=== PATIENT | female | born 2005 | race African-American/Black ===

== ENCOUNTER 2025-05-02 16:30 | Inpatient (IN) | payer BC, OTHER ==
[~2025-05-02] VITALS: Ht 165.1 cm; Wt 129.3 kg
[2025-05-02 20:50] VITALS: BP 143/90; PULSE 87; RESP 20; TEMP 98.3; O2SAT 98
[2025-05-02] MEDS ORDERED: magnesium hydroxide 30ml (MOM) UD suspension PO PRN (21:10)
[2025-05-02] MEDS ORDERED: loperamide 2mg capsule PO PRN (21:10)
[2025-05-02] MEDS ORDERED: NICOTINE POLACRILEX 2 MG LOZENGE BC PRN (21:10)
[2025-05-02 21:55] VITALS: RESP 20; O2SAT 98
[2025-05-02] MEDS ORDERED: [UNRECOGNIZED DRUG - CODE] IV (21:58)
[2025-05-02] MEDS ORDERED: QUET25TA PO (21:58)
[2025-05-02] MEDS ORDERED: FAMO-129 PO (21:58)
[2025-05-03 07:00] VITALS: RESP 16
[2025-05-03 08:00] VITALS: PULSE 87; RESP 16; TEMP 98.5
[2025-05-03] MEDS ORDERED: nicotine 21mg patch - 24 hr TD SCH (08:00)
[2025-05-03 09:24] LABS: CHOL/HDL RATIO 2.4 (0.00-4.99); LDL CHOLESTEROL 84 MG/DL (50-100)
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
--- NOTE | 2025-05-03 18:31 | HISTORY AND PHYSICAL-Residence ---
History & Physical Providers to Resident Creating Document: KAROLYN WHALEN, RES ~ History of Present Illness Reason for Admit\Complaint: H consult History of Present Illness The patient is a 19-year-old female who was admitted into [place] [facility] on 5150 hold for grave disability, poor sleep, hallucinations and paranoia. In 2019, the patient was treated with high doses of steroids, plasmapheresis for Yoly's encephalopathy and subsequently developed catatonia. On questioning, the patient does not remember when or how she got here. She wants to see her mom and sister. She said she sees primary care in [place] and lives in [place]. She has no other complaints. Allergies: Coded Allergies: amoxicillin (Verified Allergy, Unknown, 05/02/25) haloperidol (Verified Allergy, Unknown, 05/02/25) Home Medications Home Medications Active Reported Methylprednisolone Sod Succ 125 Mg Vial 125 Mg IV DAILY Seroquel (Quetiapine Fumarate) 25 Mg Tablet 50 Mg PO CCHS Pepcid (Famotidine) 20 Mg Tablet 1 Tab PO BID Past Medical History Past Medical History History of Yoly's encephalopathy Anxiety PCOS Past Surgical History Surgical History Comment None Past Social History Social History Comment Patient lives in [place]. Sees primary care in [place]. No substance use history or IV drug abuse. ROS ROS Constitutional: No fever, dizziness, weakness. no change in appetite/weight HEENT: No blurring of the vision, No sore throat, epistaxis, tinnitus Cardiovascular: No chest pain/discomfort, palpitations, syncope. No pedal edema Respiratory: No sob, cough,, hemoptysis Gastrointestinal: No abdominal pain, nausea, vomiting. No diarrhea, constipation, melena. Genitourinary: No frquency, urgency, incontinence, nocturia. No dysuria, hematuria Musculoskeletal: No arthralgia, myalgia Endocrine: No fatigue, polydipsia, polyuria. No heat or cold intolerance Neurologic: No headache, vertigo. No weakness, numbness or tingling of extremi ties Psychiatric: Reports hallucinations/delusions Hematologic: No bleeding or bruises Exam Vitals: Vital Signs Date Time Temp Pulse Resp B/P (MAP) Pulse Ox O2 Delivery O2 Flow Rate FiO2 05/03/25 08:00 98.5 87 16 Room Air 05/02/25 21:55 98 05/02/25 20:50 143/90 (107) General: Adult, obese female, not in distress Head: Normocephalic with an atraumatic Eyes: Pupils- 3mm, reacting to light, conjunctiva- anicteric Nose and throat: No polyps, septum- normal, no mucosal ulcers Neck: Supple, no lymphadenopathy, no carotid bruit Respiratory: No use of accessory muscles of respiration, Bilateral normal vesiscular breath sounds heard. No wheeze, rhochi or creps Cardiac: S1-S2 heard, rythm regular, no gallop/murmur Abdomen: non distended, no tenderness, no organomegaly, bowel sounds - heard Extremities: no clubbing, no pedal edema, no deformities, peripheral pulses - 2+ Skin: warm and dry, no rash, no purpura Neuro: No focal deficit, gross cranial nerve exam - normal Additional Plan A 19-year-old female is admitted into the mental health unit on 5150 hold. Plan: 5150 hold Psychosis Generalized anxiety disorder Continue management as per Psychiatry. History of Yoly's thyroiditis Follow up with TSH. Patient not on any medications at home. Disposition: Hospitalist service we will continue to follow the patient during the course of her hospital stay. Karolyn Whalen MD Internal Medicine Resident, PGY-2 The patient was seen, examined and discussed with the attending physician, Dr. Rainey. Date of Service: May 03, 2025 Billing Provider: KENN RAINEY MD,KAROLYN LEIVA, RES May 03, 2025 18:31
[2025-05-03 19:00] VITALS: RESP 18; O2SAT 98
[2025-05-03 19:26] VITALS: BP 126/79; PULSE 111; RESP 18; TEMP 97.4; O2SAT 98
[2025-05-03 20:30] VITALS: PULSE 95
[2025-05-04 07:30] VITALS: BP 109/79; PULSE 67; RESP 14; TEMP 98; O2SAT 95
[2025-05-04 07:42] LABS: MEAN PLATELET VOLUME 6.3 FL (7.4-10.4); RED CELL DISTRIBUTION WIDTH 14.9 % (11.5-14.5)
[2025-05-04 08:08] LABS: CREATININE 0.74 MG/DL (0.40-0.90); TOTAL CARBON DIOXIDE 26.8 MMOL/L (24-32); eCRCL 108 ML/MIN; eGFR > 90 ML/MIN
[2025-05-04 19:00] VITALS: RESP 18; O2SAT 97
[2025-05-04 19:16] VITALS: BP 133/85; PULSE 122; RESP 18; TEMP 97.3; O2SAT 97
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
[2025-05-04] MEDS: OLANZAPINE 5 MG TABLET PO SCH (20:24)
[2025-05-04] MEDS: divalproex sod 250mg ER (24-hour) tablet PO SCH (20:25)
[2025-05-05 07:30] VITALS: BP 131/78; PULSE 100; RESP 16; TEMP 97.1; O2SAT 96
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
[2025-05-05 19:00] VITALS: RESP 16; O2SAT 98
--- NOTE | 2025-05-05 19:24 | PROGRESS NOTE- Residence ---
Progress Note - Resident Providers to CC Resident Creating Document: JOSÉ MIGUEL CEDILLO RES ~ Antibiotic Timeout Antibiotic Ordered?: No Subjective Patient was seen and examined at bedside. No active medical complaints. Objective Vital Signs Date Time Temp Pulse Resp B/P (MAP) Pulse Ox O2 Delivery O2 Flow Rate FiO2 05/05/25 07:30 97.1 100 16 131/78 (95) 96 Room Air Result Diagram: 05/04/2516 05/04/25 0716 General: Awake and Alert, no acute distress. HEENT: Conjunctiva pink, Sclera clear, Mucus Membranes moist. Neck: Supple without masses and tenderness. Resp: Unlabored. Lungs clear to auscultation bilaterally. Heart: Regular Rate and rhythm, normal S1 and S2 without murmur, rub or gallop. Abdomen: Soft and non tender no organomegaly Extremities: No cyanosis,clubbing or edema. Skin: Warm and Dry. Plan Plan Assessment A 19-year-old female admitted into the mental health unit on 5150 hold. 5150 hold Psychosis Generalized anxiety disorder Continue management as per Psychiatry. No active medical complaints Disposition: Hospitalist service we will continue to follow the patient during the course of her hospital stay. The patient was seen, examined and discussed with the attending physician, Dr. Junior. Date of Service: May 05, 2025 Billing Provider: KENN JUNIOR MD, LUCAS, RES May 05, 2025 19:24
[2025-05-05 20:00] VITALS: BP 123/83; PULSE 98; RESP 16; TEMP 98; O2SAT 98
[2025-05-06 07:30] VITALS: RESP 16; O2SAT 97
[2025-05-06 08:00] VITALS: BP 130/81; PULSE 104; RESP 16; TEMP 97.6; O2SAT 97
--- NOTE | 2025-05-06 18:48 | PROGRESS NOTE ---
Progress Note Dictate Providers to CC ~ Central Line/PICC still needed: N\\A Antibiotic Ordered?: No MRSA Education MRSA Education Provided to pt: No Objective Vitals Vital Signs Date Time Temp Pulse Resp B/P (MAP) Pulse Ox O2 Delivery O2 Flow Rate FiO2 05/06/25 17:12 16 05/06/25 08:00 97.6 104 130/81 (97) 97 Room Air Lab Results: 05/04/25 0716 05/04/25 0716 Psychiatrist's Progress Note Date of Service: May 06, 2025 Notes CHART REVIEW The pt was placed on a 5150 hold for GD after it was reported that the pt had not been sleeping, unable to make a plan of care and has been experiencing fear. 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 Pt began experiencing anxiety, poor sleep, confusion, panic, unable to safety plan. Per mom - pt experienced a similar episode in 2019, started experiencing confusion, not acting like herself, pt was diagnosed with possible amnesia, bipolar or schizophrenia. Pt's symptoms began returning around one month ago. Mom reports confusions, anxiety, poor sleep, difficulty grasphing reality, agitation, memory lapse, and a significant fear of dying. ASSESSMENT The patient was interviewed in observation room. The patient was actively standing in doorway. The patient endorses "not doing so well.' The patient endorses she had a stroke this morning. "It was way too loud and too much stuff going on." "My vision went completely blind." "It may have been a panic attack, it is creepy in here." "I am very anxious, hospital alarms trigger me." The patient endorses her dads birthday is tomoorow he 10 years ago when she was 8 years of age. Denies SI. Denies HI. Denies VH. The patient endorses adequate sleep and food intake. The patient is stable no acute distress noted. The patient presents as depressed and a bit anxious.. Per staff report no abnormal behaviors. Will continue daily assessment and adjusting treatment as needed. Closely monitor behavior and response to medication during hospitalization. Speech: Normal Eye Contact: Normal Motor Activity: Normal Affect: Labile Mood: Anxious Orientation Impairment: None Memory Impairment: None Attention: Normal Hallucinations: None Other: None Suicidality: None Homicidality: None Delusions: None Behavior: Agitated Insight: Fair Judgment: Fair Treatment DIAZIPEM 10MG PO QHS OLANZAPINE 15MG PO QHS FLUOXETINE 20MG PO DAILY DEPAKOTE ER 500MG PO DAILY 5250 HOLD-GD- Patient is unable to formulate a plan to safety. We are still titrating medications to an effective dose while maintaining a therapeutic environment to prevent decompensation and readmission. Monitoring by Staff, Milieu, Group, and Individual counseling as needed -- According to the [place] Suicide Assessment the above named patient is on Q15 MINUTE CHECKS. Total time spent 40 minutes on REVIEW OF Clinical notes [X ] RN notes [X] PCT documentation [X] SW notes Labs [ X] Medications [X] Care trends/care activity [X] Vitals [X] DISCUSSION WITH home care coordinator [X] Staff SW Treatment Team [X] Discharge UNSURE AT THIS TIME. DISCHARGE HOME ONCE STABLE CODING VISIT-PSYCHIATRY Date of Service: May 06, 2025 Billing Provider: LAVELLE FONTENOT APRN Psych Common Visit Codes: [id number] INP/OBS CARE (Mod) LAVELLE FONTENOT APRN May 06, 2025 18:48
[2025-05-06 19:00] VITALS: RESP 20; O2SAT 97
[2025-05-06 20:00] VITALS: BP 136/62; PULSE 102; RESP 20; TEMP 98; O2SAT 97
[2025-05-07 07:00] VITALS: RESP 18; O2SAT 99
[2025-05-07 08:00] VITALS: BP 139/86; PULSE 110; RESP 18; TEMP 97.4; O2SAT 99
[2025-05-07] MEDS: mag hydrox/Alum hydrox/simeth 30ml oral suspension PO PRN (14:20)
--- NOTE | 2025-05-07 17:14 | PROGRESS NOTE ---
Daily Progress Note Providers to CC No new complaint today resting comfortably in the bed ~ Central Line/PICC still needed: No Antibiotic Timeout Antibiotic Ordered?: No MRSA Education MRSA Education Provided to pt: No Subjective As above Objective Vital Signs Date Time Temp Pulse Resp B/P (MAP) Pulse Ox O2 Delivery O2 Flow Rate FiO2 05/07/25 08:00 97.4 110 18 139/86 (103) 99 Room Air Vital signs, stable ,afebrile. Tachycardic, Pulse Oximetry reflects adequate oxygenation. BMI is 45, weight 124 kg General: well developed, well nourished. Awake , alert, and oriented x4, resting comfortably in the bed, in no acute distress . Skin: Warm, dry, no pallor, no rash or petechiae. HEENT: Atraumatic, normocephalic, EOMI, anicteric sclera B; pink conjunctiva; PERRLA, normal oropharynx, moist oral and nasal mucosa. Tympanic membrane , nose , throat clear. Neck: Trachea midline. Supple, full range of motion, no JVD, bruit , hepatojugular reflex , lymphadenopathy or masses, or other lesions Cardiac: Regular rhythm, tachycardic, no murmurs, rubs, or gallops. Normal S1 and S2, no S3 noticed. PMI is normal. Respiratory: Equal breath sounds bilaterally, no tachypnea; lungs clear to auscultation bilaterally, no wheezing ,rub or rales, or crackles. Chest wall is symmetric and without deformity. No signs of trauma. Chest wall is nontender. No signs of respiratory distress. Resonance is normal upon percussion bilaterally. Gastrointestinal: Abdomen symmetric, non-distended, soft, non-tender, normal bowel sounds x4 quadrant, normoactive, no hepatosplenomegaly , no masses , no bruit, no flank pain bilaterally. No voluntary guarding, rebound, or rigidity. No tenderness to percussion. No pulsatile masses. Equal femoral pulses. No Hernandez's sign or McBurney point tenderness. Back; no CVA tenderness bilaterally, no deformities. Neck and back are without deformity as well. No tenderness noted on palpation of the spinous processes. Spinous processes are midline. Cervical, thoracic, and lumbar paraspinal muscles are not tender and are without spasm. : Deferred by patient Musculoskeletal: Extremities, normal range of motion, non-tender, muscle strength 5/5 x 4. Negative Homans signs bilaterally on lower extremity. Distal pulses full symmetrical, no clubbing, cyanosis , edema. Neurological: Speech is clear, alert, and oriented x 4. No motor or sensory deficit, deep tendon reflexes normal, cerebellar intact. Cranial nerves II-XII intact. Psych: Alert and or appropriate, normal affect. Vascular: Good distal pulses, which are equal x4; capillary refill less than 2 seconds. Lymphatic, no lymphadenopathy. Result Diagram: 05/04/25 0716 05/04/25 0716 Problem\Assessment\Plan Plan Assessment A 19-year-old female admitted into the mental health unit on 5150 hold. 5150 hold Psychosis Generalized anxiety disorder Continue management as per Psychiatry. Tachyarrhythmia, lab work pending Leukocytosis, lab work pending Hospitalist service we will continue to follow the patient during the course of her hospital stay. Sepsis Screening Reassessment Date: May 07, 2025 Date of Service: May 07, 2025 Billing Provider: KALPESH ELLIS MD Common Visit Codes: [id number] INP/OBS CARE(MOD) KALPESH ELLIS MD May 07, 2025 17:14
--- NOTE | 2025-05-07 17:36 | RADIOLOGY REPORT ---
CHEST RADIOGRAPH Indication: sepsis.. Technique: Single frontal view of the chest was obtained COMPARISON: None FINDINGS: Lines and Tubes: None Lungs: Clear Pleura: No effusion. No pneumothorax. Cardiomediastinal contours: Unremarkable Bones: Unremarkable IMPRESSION: No acute disease.
--- NOTE | 2025-05-07 18:45 | PROGRESS NOTE ---
Progress Note Dictate Providers to CC ~ Central Line/PICC still needed: N\\A Antibiotic Ordered?: No MRSA Education MRSA Education Provided to pt: No Objective Vitals Vital Signs Date Time Temp Pulse Resp B/P (MAP) Pulse Ox O2 Delivery O2 Flow Rate FiO2 05/07/25 08:00 97.4 110 18 139/86 (103) 99 Room Air Lab Results: 05/04/25 0716 05/04/25 0716 Psychiatrist's Progress Note Date of Service: May 07, 2025 Notes CHART REVIEW The pt was placed on a 5150 hold for GD after it was reported that the pt had not been sleeping, unable to make a plan of care and has been experiencing fear. 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 Pt began experiencing anxiety, poor sleep, confusion, panic, unable to safety plan. Per mom - pt experienced a similar episode in 2019, started experiencing confusion, not acting like herself, pt was diagnosed with possible amnesia, bipolar or schizophrenia. Pt's symptoms began returning around one month ago. Mom reports confusions, anxiety, poor sleep, difficulty grasphing reality, agitation, memory lapse, and a significant fear of dying. ASSESSMENT The patient was interviewed in observation room. The patient was actively standing in hallway. The patient endorses "I am doing better." "I am less anxious today but a littl sad because today is my fathers birthday and I wanted to release a balloon but everything happens for a reason." Denies SI. Denies HI. Denies VH. The patient endorses adequate sleep and food intake. The patient is stable no acute distress noted. The patient presents as less anxious.. Per staff report no abnormal behaviors. Will continue daily assessment and adjusting treatment as needed. Closely monitor behavior and response to medication during hospitalization. Speech: Normal Eye Contact: Normal Motor Activity: Normal Affect: Full Mood: Anxious Orientation Impairment: None Memory Impairment: None Attention: Normal Hallucinations: None Other: None Suicidality: None Homicidality: None Delusions: None Behavior: Cooperative Insight: Fair Judgment: Fair Treatment DIAZIPEM 10MG PO QHS OLANZAPINE 15MG PO QHS FLUOXETINE 20MG PO DAILY DEPAKOTE ER 500MG PO DAILY 5250 HOLD-GD- Patient is unable to formulate a plan to safety. We are still titrating medications to an effective dose while maintaining a therapeutic environment to prevent decompensation and readmission. Monitoring by Staff, Milieu, Group, and Individual counseling as needed -- According to the [place] Suicide Assessment the above named patient is on Q15 MINUTE CHECKS. Total time spent 30 minutes on REVIEW OF Clinical notes [X ] RN notes [X] PCT documentation [X] SW notes Labs [ X] Medications [X] Care trends/care activity [X] Vitals [X] DISCUSSION WITH beam house inspector [X] Staff SW Treatment Team [X] Discharge UNSURE AT THIS TIME. DISCHARGE HOME ONCE STABLE CODING VISIT-PSYCHIATRY Date of Service: May 07, 2025 Billing Provider: LAVELLE FONTENOT APRN Psych Common Visit Codes: [id number] INP/OBS CARE (Mod) LAVELLE FONTENOT APRN May 07, 2025 18:45
[2025-05-07 18:57] LABS: MEAN PLATELET VOLUME 6.4 FL (7.4-10.4); RED CELL DISTRIBUTION WIDTH 14.7 % (11.5-14.5)
[2025-05-07 19:13] LABS: CREATININE 0.89 MG/DL (0.40-0.90); TOTAL CARBON DIOXIDE 29.7 MMOL/L (24-32); eCRCL 90 ML/MIN; eGFR > 90 ML/MIN
[2025-05-08 07:00] VITALS: RESP 17; O2SAT 99
[2025-05-08 08:00] VITALS: BP 152/92; PULSE 120; RESP 17; TEMP 97.7; O2SAT 99
--- NOTE | 2025-05-08 16:08 | PROGRESS NOTE ---
Progress Note Dictate Providers to CC ~ Progress Note: Admission date: 05/02/25 Status: 5250 HPI: Admitted on 5150 for grave disability, poor sleep, fearful, paranoid- that something bad was going to happen, tangental, memory lapses, ability and auditory, visual, hallucinations, confusion unable to perform ADLs, not eating. Worried someone was going to hurt her. 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 04/27- [facility] Neurologist Dr. 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 Raised concern for potential paranoid schizophrenia vs. schizoaffective disorder bipolar type. Recommended patient would benefit to transfer to an inpatient psychiatric facility. Psychiatric History Age of initial treatment: 13 Outpatient: hx of brief counseling in the past Inpatient: denies Historical Diagnoses (w/year): VIV, psychosis NOS Access to firearms: denies Hx of suicide attempts: denies Hx of self-harm: denies Hx of violence: denies Legal hx: denies Historical Psych Medications: quetiapine, olanzapine Substance Use History: denies No known hx of IVDU No known hx of meeting criteria for a substance use disorder Social history Born and raised: [facility] Current Environment Living Situation: In [place] with roommate, working on degree in animal science for the past 3 1/2 years, has one semester left . 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 Mood labile Anniversary of her Father's on May 06 SAT- endorses ongoing panic, less anxiety and distress Thursday. Security was call on her last night- for episodes of agitation- delusions that people think she works here. 05/08 AM: cursing, screaming paranoid, fearful people are using her blood in a ritual. Coping skills- prayer - Psychiatric Medications: Valium Depakote Olanzapine Recent PRNS: Olanzapine Thorazine Valium Benadryl Hydroxyzine Side Effects: Denies No evidence of TD, EPS AIMs: 0 Review of Psychiatric Symptoms: Mood: "antsy but doing good" 03/31- good "I'm doing very very well" Suicide/self-harm: denies Sleep: States that high noise impacts sleep- 2 hours 05/07, 3 hours 05/06, 6 hours 05/04 Appetite: hungry Energy: "tired but I'm ok" Anxiety: 03/31- panic episodes Irritability: (expressed) Homicidal/Anger: intermittently- Hallucinations/Paranoia: denies Trauma symptoms: states she has always had a live time trusting people. States she has had a lot of trauma from "my whole life". Symptoms related to substance withdrawal: Mental Status Evaluation General Appearance: Hospital scrubs, poorly groomed, malodorous Eye contact: intermittent Demeanor: suspicious, anxious Orientation: to person, place, time, situation Speech: Appropriate rate/rhythm, loud Psychomotor Activity: within normal range Abnormal Body Movements: none observed Mood: anxious, fearful, upset Affect: Full range Suicidality: denies suicidal ideation Homicidally: denies Thought content: paranoid, delusional Thought process: goal directed Thought perceptions: no perceptual disorder noted Memory: appears intact Attention: appear attentive Insight: good Judgment: good - - Current Medical Problems: PCOS dx 4 years ago 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 Medical History Cardiac HX: Denies TBI Hx: denies Seizure Hx: denies WHITLEY Hx: denies - - Diagnoses Psychosis NOS r/o primary psychotic disorder- schizoaffective disorder bipolar type r/o Psychotic symptoms due to acute encephalopathy VIV w/panic PTSD- - Assessment Victorina presents for follow up to address Psychosis NOS, VIV with panic. 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 Upset, fearful, paranoid, insomnia, disorganized behavior. 05/08: minimal engagement in assessment, poor sleep, labile mood, threatened peers, ongoing manic and psychotic symptoms. Treatment plan: Discontinue valium QHS for anxiety, sleep. Start lorazepam TID for anxiety. Titrate Depakote ER for Mood stability/manic symptoms. Titrate olanzapine po QHS for mood, psychotic symptoms. Safety risk: low risk of imminent self-harm, low risk of externalized violent behaviors Plan Increase Depakote ER from 500 to 1000 mg po QD Increase olanzapine from 15 to 20 mg po QHS Discontinue Diazepam 10 mg po QHS for anxiety Start lorazepam 1 mg po TID Continue Q15 min checks Continue Groups/Milieu Engagement Promote social support- Rachel Lopez (lives in [place])- [phone] Care coordination: Sister Twyla- [phone] Mother Nancy- [phone] Tamica ROE- [phone] Dr. Tirso Guevara- [phone] Discharge Plan: To home No Access to firearms: Spent approximately 45 minutes reviewing records and test results, assessing and treatment planning, completing care coordination and documenting the encounter. Discussed risks, including possible adverse effects, and benefits of treatment recommendations including no treatment. Voice recognition software may have been used to dictate this note. There may be errors due to use of such software. Reporting of serious errors is appreciated. Safety plan established, reviewed, copy sent home (copy in the chart) Antibiotic Ordered?: No Objective Vitals Vital Signs Date Time Temp Pulse Resp B/P (MAP) Pulse Ox O2 Delivery O2 Flow Rate FiO2 05/08/25 13:44 18 05/08/25 08:00 97.7 120 152/92 (112) 99 Room Air Lab Results: 05/07/25 1834 05/07/25 1834 Coagulation Studies Laboratory Tests Test 05/07/25 18:34 D-Dimer 1.53 MG/L FEU (0-0.50) H D-Dimer Comment Problem\\Assessment\\Plan Problems/Diagnosis: (1) Unspecified psychosis (2) VIV (generalized anxiety disorder) CODING VISIT-PSYCHIATRY Date of Service: May 08, 2025 Billing Provider: SAKINA CASANOVA DNP Psych Common Visit Codes: [id number] INP/OBS CARE(Mod), [id number] INP/OBS CARE(High) SAKINA CASANOVA DNP May 08, 2025 16:08
[2025-05-08 19:00] VITALS: RESP 18; O2SAT 98
[2025-05-08 20:00] VITALS: BP 154/88; PULSE 116; RESP 18; TEMP 97.6; O2SAT 98
[2025-05-08] MEDS: divalproex sod 250mg ER (24-hour) tablet PO SCH (20:17)
[2025-05-09 07:00] VITALS: RESP 18; O2SAT 97
[2025-05-09 08:00] VITALS: BP 145/85; PULSE 122; RESP 18; TEMP 97.9; O2SAT 97
--- NOTE | 2025-05-09 10:49 | PROGRESS NOTE ---
Daily Progress Note Providers to CC No new complaint today, resting comfortably in the bed ~ Central Line/PICC still needed: No Huang-Non Protocol Huang Indications Met/Not Met: F/C Indications Not Met Antibiotic Timeout Antibiotic Ordered?: No Subjective As above Objective Vital Signs Date Time Temp Pulse Resp B/P (MAP) Pulse Ox O2 Delivery O2 Flow Rate FiO2 05/09/25 08:00 97.9 122 18 145/85 (105) 97 Vital signs, stable ,afebrile. Tachycardic, Pulse Oximetry reflects adequate oxygenation. General: well developed, well nourished. Awake , alert, and oriented x4, resting comfortably in the bed, in no acute distress . Skin: Warm, dry, no pallor, no rash or petechiae. HEENT: Atraumatic, normocephalic, EOMI, anicteric sclera B; pink conjunctiva; PERRLA, normal oropharynx, moist oral and nasal mucosa. Tympanic membrane , nose , throat clear. Neck: Trachea midline. Supple, full range of motion, no JVD, bruit , hepatojugular reflex , lymphadenopathy or masses, or other lesions Cardiac: Regular rhythm, regular rate no murmurs, rubs, or gallops. Normal S1 and S2, no S3 noticed. PMI is normal. Respiratory: Equal breath sounds bilaterally, no tachypnea; lungs clear to auscultation bilaterally, no wheezing ,rub or rales, or crackles. Chest wall is symmetric and without deformity. No signs of trauma. Chest wall is nontender. No signs of respiratory distress. Resonance is normal upon percussion bilaterally. Gastrointestinal: Abdomen symmetric, non-distended, soft, non-tender, normal bowel sounds x4 quadrant, normoactive, no hepatosplenomegaly , no masses , no bruit, no flank pain bilaterally. No voluntary guarding, rebound, or rigidity. No tenderness to percussion. No pulsatile masses. Equal femoral pulses. No Hernandez's sign or McBurney point tenderness. Back; no CVA tenderness bilaterally, no deformities. Neck and back are without deformity as well. No tenderness noted on palpation of the spinous processes. Spinous processes are midline. Cervical, thoracic, and lumbar paraspinal muscles are not tender and are without spasm. Musculoskeletal: Extremities, normal range of motion, non-tender, muscle strength 5/5 x 4. Negative Homans signs bilaterally on lower extremity. Distal pulses full symmetrical, no clubbing, cyanosis , edema. Neurological: Speech is clear, alert, and oriented x 4. No motor or sensory deficit, deep tendon reflexes normal, cerebellar intact. Cranial nerves II-XII intact. Psych: Alert and or appropriate, normal affect. Vascular: Good distal pulses, which are equal x4; capillary refill less than 2 seconds. Lymphatic, no lymphadenopathy. 05/08/25 20:00 Room Air Result Diagram: 05/07/25 1834 05/07/25 1834 Coagulation Studies Laboratory Tests Test 05/07/25 18:34 D-Dimer 1.53 MG/L FEU (0-0.50) H D-Dimer Comment Problem\Assessment\Plan Plan Assessment A 19-year-old female admitted into the mental health unit on 5150 hold. 5150 hold Psychosis Generalized anxiety disorder Continue management as per Psychiatry. Tachyarrhythmia, lab work pending, V/Q test pending Leukocytosis, lab work pending Electrocardiography pending Hospitalist service we will continue to follow the patient during the course of her hospital stay. Sepsis Screening Reassessment Date: May 09, 2025 Date of Service: May 09, 2025 Billing Provider: KALPESH ELLIS MD Common Visit Codes: [id number] INP/OBS CARE(MOD) KALPESH ELLIS MD May 09, 2025 10:49
--- NOTE | 2025-05-09 17:35 | PROGRESS NOTE ---
Progress Note Dictate Providers to CC ~ Progress Note: Admission date: 05/02/25 Status: 5250 HPI: Admitted on 5150 for grave disability, poor sleep, fearful, paranoid- that something bad was going to happen, tangental, memory lapses, ability and auditory, visual, hallucinations, confusion unable to perform ADLs, not eating. Worried someone was going to hurt her. 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 04/27- [facility] Neurologist Dr. 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 Raised concern for potential paranoid schizophrenia vs. schizoaffective disorder bipolar type. Recommended patient would benefit to transfer to an inpatient psychiatric facility. 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 States she feels like she is in a better place, less irritability. Is focused on discharge as soon as possible. States she has found benefit from the medication Psychiatric Medications: Lorazepam Depakote Olanzapine Side Effects: Denies No evidence of TD, EPS AIMs: 0 Review of Psychiatric Symptoms: Mood: "I'm doing better" describes her mood as "calm" Suicide/self-harm: denies Sleep: 7 hours on 05/08, States that high noise impacts sleep- 2 hours 05/07, 3 hours 05/06, 6 hours 05/04 Appetite: hungry- frustrated about dietary issues Energy: adequate Anxiety: "none" Irritability: (expressed) Homicidal/Anger: intermittently- Hallucinations/Paranoia: states yesterday she was hearing AH. Trauma symptoms: states she has always had a live time trusting people. States she has had a lot of trauma from "my whole life". Symptoms related to substance withdrawal: denies Mental Status Evaluation General Appearance: Hospital scrubs, poorly groomed, malodorous Eye contact: intermittent Demeanor: suspicious, anxious Orientation: to person, place, time, situation Speech: Appropriate rate/rhythm, loud Psychomotor Activity: within normal range Abnormal Body Movements: none observed Mood: anxious, fearful, upset Affect: Full range Suicidality: denies suicidal ideation Homicidally: denies Thought content: paranoid, delusional Thought process: goal directed Thought perceptions: no perceptual disorder noted Memory: appears intact Attention: appear attentive Insight: good Judgment: good - - Current Medical Problems: PCOS dx 4 years ago - states she just ended her control the week of psychiatric symptom onset. 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 Medical History Cardiac HX: Denies TBI Hx: denies Seizure Hx: denies WHITLEY Hx: denies - - Diagnoses Psychosis NOS r/o primary psychotic disorder- schizoaffective disorder bipolar type r/o Psychotic symptoms due to acute encephalopathy VIV w/panic PTSD- - Assessment Victorina presents for follow up to address Psychosis NOS, VIV with panic. 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 Upset, fearful, paranoid, insomnia, disorganized behavior. 05/09: remains acutely psychotic, mood less labile, less suspicious and more engaged today, still lacking insight into the severity of her psychotic symptoms. Treatment plan: Continue lorazepam TID for anxiety. Titrate Depakote ER for Mood stability/manic symptoms. Titrate olanzapine po QHS for mood, psychotic symptoms. Care coordination with mother, provided education and updates. Safety risk: low risk of imminent self-harm, low risk of externalized violent behaviors Plan Continue Depakote ER 1000 mg po QD Continue olanzapine 20 mg po QHS Continue lorazepam 1 mg po TID Continue Q15 min checks Continue Groups/Milieu Engagement Promote social support- Rachel Lopez (lives in [place])- [phone] Care coordination: Sister Twyla- [phone] Mother Nancy- [phone] Tamica JYOTHI- [phone] Dr. Tirso Guevara- [phone] Discharge Plan: To home Access to firearms: Spent approximately 45 minutes reviewing records and test results, assessing and treatment planning, completing care coordination and documenting the encounter. Discussed risks, including possible adverse effects, and benefits of treatment recommendations including no treatment. Voice recognition software may have been used to dictate this note. There may be errors due to use of such software. Reporting of serious errors is appreciated. Safety plan established, reviewed, copy sent home (copy in the chart) Antibiotic Ordered?: No Objective Vitals Vital Signs Date Time Temp Pulse Resp B/P (MAP) Pulse Ox O2 Delivery O2 Flow Rate FiO2 05/09/25 13:13 18 05/09/25 08:00 97.9 122 145/85 (105) 97 05/09/25 07:00 Room Air Lab Results: 05/07/25 1834 05/07/25 1834 Coagulation Studies Laboratory Tests Test 05/07/25 18:34 D-Dimer 1.53 MG/L FEU (0-0.50) H D-Dimer Comment Problem\\Assessment\\Plan Problems/Diagnosis: (1) Unspecified psychosis (2) VIV (generalized anxiety disorder) CODING VISIT-PSYCHIATRY Date of Service: May 09, 2025 Billing Provider: SAKINA CASANOVA DNP Psych Common Visit Codes: [id number] INP/OBS CARE(High) SAKINA CASANOVA DNP May 09, 2025 17:35
[2025-05-09 19:00] VITALS: RESP 16; O2SAT 97
[2025-05-09 20:00] VITALS: BP 125/80; PULSE 112; RESP 16; TEMP 97.1; O2SAT 97
[2025-05-10 07:00] VITALS: RESP 16
[2025-05-10 08:00] VITALS: RESP 16
--- NOTE | 2025-05-10 13:32 | ELECTROCARDIOGRAPH REPORT ---
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 JOHNNIE Song Measurements Intervals [place] Rate: 124 P: 62 CO: 137 QRS: 52 QRSD: 82 T: 12 QT: 307 QTc: 441 Interpretive Statements Sinus tachycardia Electronically Signed On 05-10-2025 17:16:[address] JOHNNIE Song Please click the below link to view image of tracing.
--- NOTE | 2025-05-10 14:26 | RADIOLOGY REPORT ---
NUCLEAR MEDICINE VENTILATION/PERFUSION LUNG SCAN. INDICATION: PE Elevated heart rate, elevated D-dimer, morbid obesity TECHNIQUE: Following intravenous demonstration of 6 millicuries of technetium 99m MAA, and inhalation of 40 mCi of Tc 99m DTPA scintigrams were obtained in multiple projections of the lungs. FINDINGS: There is normal uptake of radionuclide on both the ventilation and perfusion portions of the examination. No mismatched perfusion defects are demonstrated. Uptake is normally homogeneous. IMPRESSION: Low probability for PE.
--- NOTE | 2025-05-10 14:50 | PROGRESS NOTE ---
Progress Note Dictate Providers to CC ~ Progress Note: Admission date: 05/02/25 Status: 5250 HPI: Admitted on 5150 for grave disability, poor sleep, fearful, paranoid- that something bad was going to happen, tangental, memory lapses, ability and auditory, visual, hallucinations, confusion unable to perform ADLs, not eating. Worried someone was going to hurt her. 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 04/27- [facility] Neurologist Dr. 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 Raised concern for potential paranoid schizophrenia vs. schizoaffective disorder bipolar type. Recommended patient would benefit to transfer to an inpatient psychiatric facility. Psychiatric History Age of initial treatment: 13 Outpatient: hx of brief counseling in the past Historical Diagnoses (w/year): VIV, psychosis NOS Historical Psych Medications: quetiapine, olanzapine Substance Use History: denies No known hx of IVDU No known hx of meeting criteria for a substance use disorder Social history Born and raised: [facility] Current Environment Living Situation: In [place] with roommate, working on degree in animal science for the past 3 1/2 years, has one semester left . 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 [employer] Today on Assessment: Last night- woke up wide awake at [address], still delusional, still exhibiting agitation r/t things she perceives she hears (AH) Bizarre behavior includes wearing a mask r/t the need to protect herself from the germs- (paranoia) States she is feels she is ready to leave, states she would like to discharge to her grandmother's home States she would like to work on the unit one day Denies that she has super wu like reading other peoples minds (doesnt recall she made these statements earlier in her hospitalization) States she feels more like her self- knows her name, location, date Psychiatric Medications: Lorazepam Depakote Olanzapine Side Effects: denies No evidence of TD, EPS AIMs: 0 Review of Psychiatric Symptoms: Mood: "I feel mentally and physically a lot better" Suicide/self-harm: denies Sleep: 3.5 hours on 05/09- states that unit noise keeps her up at night, leads to trouble staying asleep, Appetite: "good" has had some frustration r/t dietary not bringing her the correct food. Energy: "good" Anxiety: "good" while taking the medication - states the Ativan has helped her better manage her anxiety Irritability: (expressed) Homicidal/Anger: intermit Hallucinations/Paranoia: denies AVH today Trauma symptoms: states she has always had a live time trusting people. Symptoms related to substance withdrawal: denies Mental Status Evaluation General Appearance: Hospital scrubs, poorly groomed, malodorous Eye contact: intermittent Demeanor: suspicious, anxious Orientation: to person, place, time, situation Speech: Appropriate rate/rhythm, loud Psychomotor Activity: within normal range Abnormal Body Movements: none observed Mood: anxious, fearful, upset Affect: Full range Suicidality: denies suicidal ideation Homicidally: denies Thought content: paranoid, delusional Thought process: goal directed Thought perceptions: no perceptual disorder noted Memory: appears intact Attention: appear attentive Insight: good Judgment: good - - Current Medical Problems: PCOS dx 4 years ago - states she just ended her control the week of psychiatric symptom onset. 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 Medical History Cardiac HX: Denies TBI Hx: denies Seizure Hx: denies WHITLEY Hx: denies - - Diagnoses Psychosis NOS r/o primary psychotic disorder- schizoaffective disorder bipolar type r/o Psychotic symptoms due to acute encephalopathy VIV w/panic PTSD- - Assessment Victorina presents for follow up to address Psychosis NOS, VIV with panic. 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 Upset, fearful, paranoid, insomnia, disorganized behavior. 05/10: remains paranoid, no longer overly psychotic/agitated as easily, mood less labile, more engaged today, still lacking insight into the severity of her psychotic symptoms, minimizing brenda Treatment plan: Continue lorazepam TID for anxiety. Titrate Depakote ER for Mood stability/manic symptoms. Titrate olanzapine po QHS for mood, psychotic symptoms. Care coordination with mother, provided education and updates. Safety risk: low risk of imminent self-harm, low risk of externalized violent behaviors Plan Continue Depakote ER 1000 mg po QD Continue olanzapine 20 mg po QHS Continue lorazepam 1 mg po TID Continue Q15 min checks Continue Groups/Milieu Engagement Promote social support- Rachel Lopez (lives in [place])- [phone] Care coordination: Sister Twyla- [phone] Mother Nancy- [phone] Tamica ROE- [phone] Dr. Tirso Guevara- [phone] Discharge Plan: To home Access to firearms: Spent approximately 45 minutes reviewing records and test results, assessing and treatment planning, completing care coordination and documenting the encounter. Discussed risks, including possible adverse effects, and benefits of treatment recommendations including no treatment. Voice recognition software may have been used to dictate this note. There may be errors due to use of such software. Reporting of serious errors is appreciated. Safety plan established, reviewed, copy sent home (copy in the chart) Antibiotic Ordered?: No Objective Vitals Vital Signs Date Time Temp Pulse Resp B/P (MAP) Pulse Ox O2 Delivery O2 Flow Rate FiO2 05/10/25 13:00 16 05/10/25 07:00 Room Air 05/09/25 20:00 97.1 112 125/80 (95) 97 Lab Results: 05/07/25 1834 05/07/25 1834 Coagulation Studies Laboratory Tests Test 05/07/25 18:34 D-Dimer 1.53 MG/L FEU (0-0.50) H D-Dimer Comment Problem\\Assessment\\Plan Problems/Diagnosis: (1) Unspecified psychosis (2) VIV (generalized anxiety disorder) CODING VISIT-PSYCHIATRY Date of Service: May 10, 2025 Billing Provider: SAKINA CASANOVA DNP Psych Common Visit Codes: [id number] INP/OBS CARE(Mod) SAKINA CASANOVA DNP May 10, 2025 14:50
[2025-05-10 19:00] VITALS: RESP 20; O2SAT 97
[2025-05-10 20:00] VITALS: BP 147/82; PULSE 100; RESP 20; TEMP 97.5; O2SAT 97
[2025-05-11 07:00] VITALS: RESP 16; O2SAT 97
[2025-05-11 08:00] VITALS: BP 95/74; PULSE 120; RESP 16; TEMP 97.8; O2SAT 97
--- NOTE | 2025-05-11 17:59 | PROGRESS NOTE ---
Progress Note Dictate Providers to CC ~ Progress Note: Admission date: 05/02/25 Status: 5250 HPI: Admitted on 5150 for grave disability, poor sleep, fearful, paranoid- that something bad was going to happen, tangental, memory lapses, ability and auditory, visual, hallucinations, confusion unable to perform ADLs, not eating. Worried someone was going to hurt her. 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 04/27- [facility] Neurologist Dr. 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 Raised concern for potential paranoid schizophrenia vs. schizoaffective disorder bipolar type. Recommended patient would benefit to transfer to an inpatient psychiatric facility. Psychiatric History Age of initial treatment: 13 Outpatient: hx of brief counseling in the past Historical Diagnoses (w/year): VIV, psychosis NOS Historical Psych Medications: quetiapine, olanzapine Substance Use History: denies No known hx of IVDU No known hx of meeting criteria for a substance use disorder Social history Born and raised: [facility] Current Environment Living Situation: In [place] with roommate, working on degree in animal science for the past 3 1/2 years, has one semester left . 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 Currently works at [employer]. States she is able to do all of her ADLs independently States she feels like a lot of the patient's think she works here (maintained delusion) States she feels like people are jealous of the things she has - nervous about people about touching her stuff. Per nursing staff increase in "somatic complaints"- requiring more reassurance from nursing staff Grandmother can't take her home- family doesnt feel like she is ready to be discharged. Has told nursing staff there is a "speaker" in her room Psychiatric Medications: Lorazepam Depakote Olanzapine Side Effects: denies No evidence of TD, EPS AIMs: 0 Review of Psychiatric Symptoms: Mood: I feel really happy today- Suicide/self-harm: denies Sleep: 6 hours on 05/10 (vs. 3.5 on 05/09)- states that unit noise keeps her up at night, leads to trouble staying asleep, Appetite: "good" has had some frustration r/t dietary not bringing her the correct food. Energy: "good" Anxiety: "good" while taking the medication - states the Ativan has helped her better manage her anxiety Irritability: (expressed) Homicidal/Anger: none expressed today Hallucinations/Paranoia: denies AVH today, mild delusions Trauma symptoms: states she has always had a live time trusting people. Symptoms related to substance withdrawal: denies Mental Status Evaluation General Appearance: Hospital scrubs, well groomed Eye contact: intermittent Demeanor: suspicious, anxious Orientation: to person, place, time, situation Speech: Appropriate rate/rhythm, loud Psychomotor Activity: within normal range Abnormal Body Movements: none observed Mood: anxious, Affect: Full range Suicidality: denies suicidal ideation Homicidally: denies Thought content: paranoid, delusional Thought process: goal directed Thought perceptions: no perceptual disorder noted Memory: appears intact Attention: appear attentive Insight: good Judgment: good Current Medical Problems: PCOS dx 4 years ago - states she just ended her control the week of psychiatric symptom onset. 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 Medical History Cardiac HX: Denies TBI Hx: denies Seizure Hx: denies WHITLEY Hx: denies - - Diagnoses Psychosis NOS r/o schizoaffective disorder bipolar type r/o Psychotic symptoms due to acute encephalopathy VIV w/panic PTSD- - Assessment Victorina presents for follow up to address Psychosis NOS, VIV with panic. 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 Upset, fearful, paranoid, insomnia, disorganized behavior. 05/11: She continues to present with psychotic symptoms, are less overt today, sleep is continuing to stabilize. Treatment plan: Continue lorazepam TID for anxiety. Titrate Depakote ER for Mood stability/manic symptoms. Titrate olanzapine po QHS for mood, psychotic symptoms. Care coordination with mother, provided education and updates. Safety risk: low risk of imminent self-harm, low risk of externalized violent behaviors Plan Continue Depakote ER 1000 mg po QD Continue olanzapine 20 mg po QHS Continue lorazepam 1 mg po TID Continue Q15 min checks Continue Groups/Milieu Engagement Promote social support- Rachel Lopez (lives in [place])- [phone] Care coordination: Sister Twyla- [phone] Mother Nancy- [phone] Tamica ROE- [phone] Dr. Tirso Guevara- [phone] Discharge Plan: to home or family with further intensive outpatient psychiatric treatment Spent approximately 45 minutes reviewing records and test results, assessing and treatment planning, completing care coordination and documenting the encounter. Discussed risks, including possible adverse effects, and benefits of treatment recommendations including no treatment. Voice recognition software may have been used to dictate this note. There may be errors due to use of such software. Reporting of serious errors is appreciated. Antibiotic Ordered?: No Objective Vitals Vital Signs Date Time Temp Pulse Resp B/P (MAP) Pulse Ox O2 Delivery O2 Flow Rate FiO2 05/11/25 12:57 16 05/11/25 08:00 97.8 120 95/74 (81) 97 Room Air Lab Results: 05/07/25 1834 05/07/25 1834 Coagulation Studies Laboratory Tests Test 05/07/25 18:34 D-Dimer 1.53 MG/L FEU (0-0.50) H D-Dimer Comment Problem\\Assessment\\Plan Problems/Diagnosis: (1) Unspecified psychosis (2) VIV (generalized anxiety disorder) CODING VISIT-PSYCHIATRY Date of Service: May 11, 2025 Billing Provider: SAKINA CASANOVA DNP Psych Common Visit Codes: [id number] INP/OBS CARE(High) SAKINA CASANOVA DNP May 11, 2025 17:59
[2025-05-11 18:53] VITALS: RESP 17; O2SAT 98
--- NOTE | 2025-05-11 19:21 | PROGRESS NOTE- Residence ---
Progress Note - Resident Providers to CC Resident Creating Document: KAROLYN WHALEN, RES ~ Antibiotic Timeout Antibiotic Ordered?: No Subjective Patient was seen and examined at bedside. She wanted ultrasound of her thyroid. Her TSH was within normal range and she does not take any medications at home. Objective Vital Signs Date Time Temp Pulse Resp B/P (MAP) Pulse Ox O2 Delivery O2 Flow Rate FiO2 05/11/25 18:53 17 98 Room Air 05/11/25 08:00 97.8 120 95/74 (81) Result Diagram: 05/07/254 05/07/251833 Adult, obese female, not in distress Head: Normocephalic with an atraumatic Eyes: Pupils- 3mm, reacting to light, conjunctiva- anicteric Nose and throat: No polyps, septum- normal, no mucosal ulcers Neck: Supple, no lymphadenopathy, no carotid bruit Respiratory: No use of accessory muscles of respiration, Bilateral normal vesicular breath sounds heard. No wheeze, rhochi or creps Cardiac: S1-S2 heard, rythm regular, no gallop/murmur Abdomen: non distended, no tenderness, no organomegaly, bowel sounds - heard Extremities: no clubbing, no pedal edema, no deformities, peripheral pulses - 2+ Skin: warm and dry, no rash, no purpura Neuro: No focal deficit, gross cranial nerve exam - normal Coagulation Studies Laboratory Tests Test 05/07/25 18:34 D-Dimer 1.53 MG/L FEU (0-0.50) H D-Dimer Comment Assessment Assessment 5150 hold Psychosis Generalized anxiety disorder Continue management as per Psychiatry. History of Yoly's thyroiditis Follow up with TSH. Patient not on any medications at home. Disposition: Hospitalist service we will continue to follow the patient during the course of her hospital stay. Karolyn Whalen MD Internal Medicine Resident, PGY-2 The patient was seen, examined and discussed with the attending physician, Dr. Mcgrath. Plan Plan Assessment A 19-year-old female admitted into the mental health unit on 5150 hold. 5150 hold Psychosis Generalized anxiety disorder Continue management as per Psychiatry. No active medical complaints Disposition: Hospitalist service we will continue to follow the patient during the course of her hospital stay. The patient was seen, examined and discussed with the attending physician, Dr. Rainey. Date of Service: May 11, 2025 Billing Provider: PADMA MCGRATH MD Common Visit Codes: [id number] INP/OBS CARE(LOW) TAMAR WHALENMYMarkel LEIVA, RES May 11, 2025 19:21 PADMA MCGRATH MD May 14, 2025 16:40
[2025-05-11 20:00] VITALS: BP 146/100; PULSE 109; RESP 18; TEMP 97.6; O2SAT 99
[2025-05-12 07:00] VITALS: RESP 16; O2SAT 98
[2025-05-12 08:00] VITALS: BP 149/89; PULSE 118; RESP 16; TEMP 97.4; O2SAT 98
--- NOTE | 2025-05-12 13:06 | PROGRESS NOTE ---
Progress Note Dictate Providers to CC ~ Progress Note: Admission date: 05/02/25 Status: 5250 HPI: Admitted on 5150 for grave disability, poor sleep, fearful, paranoid- that something bad was going to happen, tangental, memory lapses, ability and auditory, visual, hallucinations, confusion unable to perform ADLs, not eating. Worried someone was going to hurt her. 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 04/27- [facility] Neurologist Dr. 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 Raised concern for potential paranoid schizophrenia vs. schizoaffective disorder bipolar type. Recommended patient would benefit to transfer to an inpatient ps hiatric facility. 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 Psychiatric Medications: Lorazepam Depakote Olanzapine Side Effects: denies No evidence of TD, EPS AIMs: 0 Review of Psychiatric Symptoms: Mood: I feel really happy today- Suicide/self-harm: denies Sleep: 5 hours 05/11, 6 hours on 05/10, 3.5 on 05/09-- states that unit noise keeps her up at night, leads to trouble staying asleep, Appetite: "good" (increased) Energy: "good" Anxiety: "good" while taking the medication - states the Ativan has helped her better manage her anxiety Irritability: (expressed) Homicidal/Anger: none expressed today Hallucinations/Paranoia: denies AVH today, mild delusions Trauma symptoms: states she has always had a live time trusting people. Symptoms related to substance withdrawal: denies Mental Status Evaluation General Appearance: Hospital scrubs, well groomed Eye contact: intermittent Demeanor: suspicious, anxious Orientation: to person, place, time, situation Speech: Appropriate rate/rhythm, loud Psychomotor Activity: within normal range Abnormal Body Movements: none observed Mood: anxious, Affect: Full range Suicidality: denies suicidal ideation Homicidally: denies Thought content: paranoid, delusional Thought process: goal directed Thought perceptions: no perceptual disorder noted Memory: appears intact Attention: appear attentive Insight: good Judgment: good Current Medical Problems: PCOS dx 4 years ago - states she just ended her control the week of p sychiatric symptom onset. 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 Medical History Cardiac HX: Denies TBI Hx: denies Seizure Hx: denies WHITLEY Hx: denies Diagnoses Psychosis NOS r/o schizoaffective disorder bipolar type r/o Psychotic symptoms due to acute encephalopathy VIV w/panic PTSD- - Assessment Victorina presents for follow up to address Psychosis NOS, VIV with panic. 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 Upset, fearful, paranoid, insomnia, disorganized behavior. 05/12: She continues to present with mood lability and psychotic symptoms, are less overt today, sleep is continuing to stabilize- still poor quality, broken Treatment plan: Continue lorazepam TID for anxiety. Titrate Depakote ER for Mood stability/manic symptoms. Titrate olanzapine po QHS for mood, psychotic symptoms. Care coordination with mother, provided education and updates. Safety risk: low risk of imminent self-harm, low risk of externalized violent behaviors Plan Increase Depakote ER from 1000 to 1500 mg po QD Increase olanzapine from 20 to 25 mg po QHS Continue lorazepam 1 mg po TID Continue Q15 min checks Continue Groups/Milieu Engagement Promote social support- Rachel Lopez (lives in [place])- [phone] Care coordination: Sister Twyla- [phone] Mother Nancy- [phone] Tamica ROE- [phone] Dr. Tirso Guevara- [phone] Discharge Plan: to home or family with further intensive outpatient psychiatric treatment Spent approximately 45 minutes reviewing records and test results, assessing and treatment planning, completing care coordination and documenting the encounter. Discussed risks, including possible adverse effects, and benefits of treatment recommendations including no treatment. Voice recognition software may have been used to dictate this note. There may be errors due to use of such software. Reporting of serious errors is appreciated. Antibiotic Ordered?: No Objective Vitals Vital Signs Date Time Temp Pulse Resp B/P (MAP) Pulse Ox O2 Delivery O2 Flow Rate FiO2 05/12/25 12:39 16 05/12/25 08:00 97.4 118 149/89 (109) 98 Room Air Coagulation Studies Laboratory Tests Test 05/07/25 18:34 D-Dimer 1.53 MG/L FEU (0-0.50) H D-Dimer Comment Problem\\Assessment\\Plan Problems/Diagnosis: (1) Unspecified psychosis (2) VIV (generalized anxiety disorder) CODING VISIT-PSYCHIATRY Date of Service: May 12, 2025 Billing Provider: SAKINA CASANOVA DNP Psych Common Visit Codes: [id number] INP/OBS CARE(Mod) SAKINA CASANOVA DNP May 12, 2025 13:06
[2025-05-12 19:00] VITALS: RESP 16; O2SAT 97
[2025-05-12] MEDS: OLANZAPINE 5 MG TABLET PO SCH (19:58)
[2025-05-12] MEDS: divalproex sod 250mg ER (24-hour) tablet PO SCH (19:59)
[2025-05-12 20:00] VITALS: BP 135/73; PULSE 116; RESP 16; TEMP 97.8; O2SAT 97
--- NOTE | 2025-05-12 20:56 | PROGRESS NOTE ---
Progress Note Dictate Providers to CC ~ Progress Note: Admission date: 05/11 Status: 5150 CC: "I want to get on with my journey" HPI: Admitted on 5150 for danger of self, friends called 911 after he was exhibiting bizarre behavior, grandiose delusions, hyper catholic believes he is a messiah, erratic behavior, unpredictable, bought a knife with the stated rational "I need to protect my family". Family reported that he has been experimenting with substances, including MDMA cocaine psilocybin THC and the past six months, his behavior has grown more concerning. Has shared that he has wu that are "beyond human capacity" and perceive himself to beat the Messiah. Darron ed that he would jump off a 20 foot ledge to prove that he has superpowers. Other behavior changes in the last six months, including dropping out of college, c utting your friendships that he perceived to be "evil", states he was "spiritually " woman on the same day he met her at a festival. Labile Mood- distressed about being on the unit. 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 He went from a 4.0 GPA in college to dropping out, for the past three months has been attending multiple 2 day raves. There was a rave in [facility] - April 21 and states he hasn't been the same since. He brought a homeless women who was overdosing home with him because he thought he was saving the women's life. He talked to his dad on the phone- felt like "superman, spiderman, like moses steiner from the movie limitless, states he feels like he is the messiah" States that he needs to save lives because "god is telling him to" or other people will . This past Thursday he was at a rave in [place]- and went through with a spiritual marriage with a stranger. His father reported that the women has a restraining order against him. Father can reflect that he hasn't been himself since last weekend in March 2025, thought process grandiose- buy a house and make money online through internet streaming. Father denies mental health history- no hx of depresiosn, anxiety, issues with appetite, learning. Father can recall that since the divorce he would push to spend time at a friends home instead sleeping at his father's home. Father can recall a time as a teenager that he used melatonin to help fall asleep. Talked to Friend Shakeel: "he is in a crazy head space" reports that he is in an unstable mental state because he thinks he has as , has a degree of euphoria. Today on Assessment: "I've always been in a catholic man" states it really hit him this summer, states he was very depressed last year and then this past spring he had an improvement in his mood after spending him with his friends. Two weeks ago at a festival called "[employer]" and [facility]- States he felt the presence of god. States he has never had the feeling of "knowing god" until this time. Then at a festival at [facility] () - states he a women named Grace- a few days later he flew to [place] for work. He states his co-workers were so "dumb founded" by what had happened that his friends assumed he was crazy. States he feels like he has no mental health symptoms. States he has felt happier here on the inpatient unit than he did last year when he was acutely depressed. States he has no negative thoughts. Endorses of depression though out his life, states initial depressed mood was age 12 when his parents , then when his brother fell off a roof and almost he experienced an empty sad mood- states those around him wouldn't have been able to tell. States that life is "too good not to be true" "I'm living the dream" "I can feel so much good energy". States his goals are return to [employer], then move down to [place] short term, then build a strong financial grounding, then go on [facility] to [place]- discussed that his uncle went to [place] "to build structure for these kids" states that on the unit he has been very supportive to the other patients, "basically scale up my personal brand through [employer] to build funds" When asked what he might be missing (in terms of why his friends brought him to the emergency department) he stated, "I don't know". "maybe some subconscious jealously". His friend is in supportive of taking his brain meds. Review of Psychiatric Symptoms: Mood: Euphoric- hopeful Suicide/self-harm: denies Sleep: 5 hours Appetite: denies Energy: "energized" Anxiety: low Irritability: denies Homicidal/Anger: denies Hallucinations/Paranoia: denies Trauma symptoms: denies Symptoms related to substance withdrawal: denies - Psychiatric History Age of initial treatment: when his parents - age 11 for several years Outpatient: denies Inpatient: denies Historical Diagnoses (w/year): denies Access to firearms: denies Hx of suicide attempts: denies Hx of self-harm: denies Hx of violence: a few altercations in the past few months- while in [place] (states this is a recent change in behavior) Legal hx: denies Historical Psych Medications: none Substance Use History Over the counter medications: denies Caffeine: less than daily Nicotine: a few zyns, occasional rare cigarette Alcohol: endorses use since adolescence, "I drink casually" 2-3 nights a week 3- 4 beverages Cannabis: Live resin, 3-4 days a week, estimates a gram of flower per week, Utox positive for cannabis Stimulants: per friends experimented with cocaine Opioids: denies Hx of IVDU: denies Other (Inhalants, Hypnotics, Hallucinogens, Rx): reportedly for the past two years marijuana, mushrooms (estimates a dozen time in the last two years), LSD estimates a total of three times total, MDMA estimates a total of three times DUI: denies treatment/rehab hx: denies Gambling: deneis No known hx of IVDU No known hx of meeting criteria for a substance use disorder Social history Born and raised in [facility], played sports, 4.0 GPA, really social, parents when he was an adolescent. Younger brother- age 19 (ADHD). No issues with development. Was going to [employer] for College- then after his first year he transitioned back to the [employer]. 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 Family History Mental Illness: no known history of schizophrenia, possible aunt with bipolar Alcohol/other drug use: denies Suicide completions: denies Current Environment Living Situation: with roommates in [employer] [facility] [place] Relationships: supportive friends and family Spiritual: Christianity Hobbies/ Other interests: outdoors, athletic, basketball, spending time with friends. 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 Income/rent/concerns about paying bills or feeding family: denies Hx: denies Mental Status Evaluation General Appearance: Casually dressed Eye contact: consistent with social norms Demeanor: cooperative, pleasant Orientation: to person, place, time, situation Speech: Appropriate rate/rhythm/volume Psychomotor Activity: within normal range Abnormal Body Movements: none observed Mood: euphoric Affect: Full range Suicidality: denies suicidal ideation Homicidally: denies Thought content: hyper religiosity Thought process: goal-directed Thought perceptions: no perceptual disorder noted Memory: appears intact Attention: appear attentive Insight: poor Judgment: limited - - Current Medical Problems: Medical History Cardiac HX: Denies TBI Hx: denies Seizure Hx: denies WHITLEY Hx: denies - - Diagnoses Hallucinogenic induced psychotic disorder - Assessment Based on initial evaluation, including interview and history obtained today, patient appears to meet criteria for Hallucinogenic induced psychotic disorder. Will start risperidone to address psychotic symptoms and mood changes. Discussed that sustained sobriety from drugs is essential to snf symptom improvement. - Safety risk: low risk of imminent self-harm, low risk of externalized violent behaviors Plan Start risperidone 1 mg po BID for psychotic and manic symptoms Continue Q15 min checks Continue Groups/Milieu Engagement Discharge Plan: to home with scheduled follow ups for outpatient therapy and medication management Access to firearms: Spent approximately 60 minutes reviewing records and test results, assessing and treatment planning, completing care coordination and documenting the encounter. Discussed risks, including possible adverse effects, and benefits of treatment recommendations including no treatment. Voice recognition software may have been used to dictate this note. There may be errors due to use of such software. Reporting of serious errors is appreciated. Antibiotic Ordered?: No Objective Vitals Vital Signs Date Time Temp Pulse Resp B/P (MAP) Pulse Ox O2 Delivery O2 Flow Rate FiO2 05/12/25 19:59 16 05/12/25 08:00 97.4 118 149/89 (109) 98 Room Air Coagulation Studies Laboratory Tests Test 05/07/25 18:34 D-Dimer 1.53 MG/L FEU (0-0.50) H D-Dimer Comment Problem\\Assessment\\Plan Problems/Diagnosis: (1) Unspecified psychosis (2) VIV (generalized anxiety disorder) CODING VISIT-PSYCHIATRY Date of Service: May 12, 2025 Billing Provider: SAKINA CASANOVA DNP Psych Common Visit Codes: [id number] INP/OBS CARE(Mod) SAKINA CASANOVA DNP May 12, 2025 20:56
[2025-05-13 07:00] VITALS: RESP 16; O2SAT 97
[2025-05-13 08:00] VITALS: BP 137/84; PULSE 119; RESP 16; TEMP 97.3; O2SAT 97
--- NOTE | 2025-05-13 18:58 | PROGRESS NOTE- Residence ---
Progress Note - Resident Providers to CC Resident Creating Document: PHYLLIS ARAUZSONNYTOY, JEANNIE ~ Antibiotic Timeout Antibiotic Ordered?: Yes Subjective Patient was seen and examined at bedside. She reports tonsils being enlarged. Objective Vital Signs Date Time Temp Pulse Resp B/P (MAP) Pulse Ox O2 Delivery O2 Flow Rate FiO2 05/13/25 12:40 18 05/13/25 08:00 97.3 119 137/84 (101) 97 Room Air Adult, obese female, not in distress Head: Normocephalic with an atraumatic Eyes: Pupils- 3mm, reacting to light, conjunctiva- anicteric Nose and throat: No polyps, septum- normal, no mucosal ulcers enlarged tonsils. Neck: Supple, no lymphadenopathy, no carotid bruit Respiratory: No use of accessory muscles of respiration, Bilateral normal vesicular breath sounds heard. No wheeze, rhochi or creps Cardiac: S1-S2 heard, rythm regular, no gallop/murmur Abdomen: non distended, no tenderness, no organomegaly, bowel sounds - heard Extremities: no clubbing, no pedal edema, no deformities, peripheral pulses - 2+ Skin: warm and dry, no rash, no purpura Coagulation Studies Laboratory Tests Test 05/07/25 18:34 D-Dimer 1.53 MG/L FEU (0-0.50) H D-Dimer Comment Assessment Assessment 5150 hold Psychosis Generalized anxiety disorder Continue management as per Psychiatry. History of Yoly's thyroiditis Follow up with TSH. Patient not on any medications at home. Disposition: Hospitalist service we will continue to follow the patient during the course of her hospital stay. Karolyn Chavez MD Internal Medicine Resident, PGY-2 The patient was seen, examined and discussed with the attending physician, Dr. Mcgrath. Plan Plan Assessment A 19-year-old female admitted into the mental health unit on 5150 hold. 5150 hold Psychosis Generalized anxiety disorder Continue management as per Psychiatry. Tonsillitis Rapid strep throat ordered Started on azithromycin, patient allergic to penicillin Disposition: Hospitalist service we will continue to follow the patient during the course of her hospital stay. The patient was seen, examined and discussed with the attending physician, Dr. Rainey. Date of Service: May 13, 2025 Billing Provider: DEMARIO CONTE MD Common Visit Codes: [id number] INP/OBS CARE(MOD) KAYLEIGH ARAUZ, RES May 13, 2025 18:58 DEMARIO CONTE MD May 14, 2025 07:23
[2025-05-13 19:00] VITALS: RESP 18; O2SAT 98
[2025-05-13 20:00] VITALS: BP 129/87; PULSE 119; RESP 18; TEMP 97.7; O2SAT 98
--- NOTE | 2025-05-13 20:32 | PROGRESS NOTE ---
Progress Note Dictate Providers to CC ~ Progress Note: Admission date: 05/02/25 Status: 5250 HPI: Admitted on 5150 for grave disability, poor sleep, fearful, paranoid- that something bad was going to happen, tangental, memory lapses, ability and auditory, visual, hallucinations, confusion unable to perform ADLs, not eating. Worried someone was going to hurt her. 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 04/27- [facility] Neurologist Dr. 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 Raised concern for potential paranoid schizophrenia vs. schizoaffective disorder bipolar type. Recommended patient would benefit to transfer to an inpatient ps hiatric facility. Psychiatric History Age of initial treatment: 13 Outpatient: hx of brief counseling in the past Historical Diagnoses (w/year): VIV, psychosis NOS Historical Psych Medications: quetiapine, olanzapine Substance Use History: denies No known hx of IVDU No known hx of meeting criteria for a substance use disorder Social history Born and raised: [facility] Current Environment Living Situation: In [place] with roommate, working on degree in animal science for the past 3 1/2 years, has one semester left . 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 [employer] Today on Assessment: Content, calm- enjoyed her visit with her grandmother Psychiatric Medications: Lorazepam Depakote Olanzapine Side Effects: denies No evidence of TD, EPS AIMs: 0 Review of Psychiatric Symptoms: Mood: I feel really happy today- Suicide/self-harm: denies Sleep: 3.5 hours on 05/12- (endorses day time napping) 5 hours 05/11, 6 hours on 05/10, 3.5 on 05/09-- states that unit noise keeps her up at night, leads to trouble staying asleep, Appetite: "good" (increased) Energy: "good" Anxiety: "good" while taking the medication - states the Ativan has helped her better manage her anxiety Irritability: (expressed) Homicidal/Anger: none expressed today Hallucinations/Paranoia: denies AVH today, mild delusions Trauma symptoms: states she has always had a live time trusting people. Symptoms related to substance withdrawal: denies Mental Status Evaluation General Appearance: Hospital scrubs, well groomed Eye contact: intermittent Demeanor: suspicious, anxious Orientation: to person, place, time, situation Speech: Appropriate rate/rhythm, loud Psychomotor Activity: within normal range Abnormal Body Movements: none observed Mood: anxious, Affect: Full range Suicidality: denies suicidal ideation Homicidally: denies Thought content: paranoid, delusional Thought process: goal directed Thought perceptions: no perceptual disorder noted Memory: appears intact Attention: appear attentive Insight: good Judgment: good Current Medical Problems: PCOS dx 4 years ago - states she just ended her control the week of psychiatric symptom onset. 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 Medical History Cardiac HX: Denies TBI Hx: denies Seizure Hx: denies WHITLEY Hx: denies Diagnoses Psychosis NOS r/o schizoaffective disorder bipolar type r/o Psychotic symptoms due to acute encephalopathy VIV w/panic PTSD- - Assessment Victorina presents for follow up to address Psychosis NOS, VIV with panic. 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 Upset, fearful, paranoid, insomnia, disorganized behavior. 05/13: content no longer labile, still having difficulty with stabilizing sleep, anxiety manageable, psychotic symptoms covert but remain present Treatment plan: Continue lorazepam TID for anxiety. Titrate Depakote ER for Mood stability/manic symptoms. Titrate olanzapine po QHS for mood, psychotic symptoms. Care coordination with mother, provided education and updates. Safety risk: low risk of imminent self-harm, low risk of externalized violent behaviors Plan Continue Depakote ER 1500 mg po QD Increase olanzapine from 25 to 30 mg po QHS Continue lorazepam 1 mg po TID Continue Q15 min checks Continue Groups/Milieu Engagement Promote social support- malachi Lopez (lives in [place])- [phone] Care coordination: Sister Twyla- [phone] Mother Nancy- [phone] Tamica ROE- [phone] Dr. Tirso Guevara- [phone] Discharge Plan: to home or family with further intensive outpatient psychiatric treatment Spent approximately 30 minutes reviewing records and test results, assessing and treatment planning, completing care coordination and documenting the encounter. Discussed risks, including possible adverse effects, and benefits of treatment recommendations including no treatment. Voice recognition software may have been used to dictate this note. There may be errors due to use of such software. Reporting of serious errors is appreciated. Antibiotic Ordered?: No Objective Vitals Vital Signs Date Time Temp Pulse Resp B/P (MAP) Pulse Ox O2 Delivery O2 Flow Rate FiO2 05/13/25 12:40 18 05/13/25 08:00 97.3 119 137/84 (101) 97 Room Air Coagulation Studies Laboratory Tests Test 05/07/25 18:34 D-Dimer 1.53 MG/L FEU (0-0.50) H D-Dimer Comment Problem\\Assessment\\Plan Problems/Diagnosis: (1) Unspecified psychosis (2) VIV (generalized anxiety disorder) CODING VISIT-PSYCHIATRY Date of Service: May 13, 2025 Billing Provider: SAKINA CASANOVA DNP Psych Common Visit Codes: [id number] INP/OBS CARE(Low) SAKINA CASANOVA DNP May 13, 2025 20:32
[2025-05-14 07:00] VITALS: RESP 18; O2SAT 97
[2025-05-14 08:00] VITALS: BP 124/74; PULSE 103; RESP 18; TEMP 97.7; O2SAT 97
[2025-05-14 19:00] VITALS: RESP 20; O2SAT 98
[2025-05-14] MEDS: JUVEN Smoothie Arginine/Glut./Ca2+Bmb (Juven 19.3pkt) 240ml cup PO SCH (20:00)
--- NOTE | 2025-05-14 20:30 | PROGRESS NOTE ---
Progress Note Dictate Providers to CC ~ Progress Note: Admission date: 05/02/25 Status: 5250 HPI: Admitted on 5150 for grave disability, poor sleep, fearful, paranoid- that something bad was going to happen, tangental, memory lapses, ability and auditory, visual, hallucinations, confusion unable to perform ADLs, not eating. Worried someone was going to hurt her. 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 04/27- [facility] Neurologist Dr. 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 Raised concern for potential paranoid schizophrenia vs. schizoaffective disorder bipolar type. Recommended patient would benefit to transfer to an inpatient ps hiatric facility. 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 [employer] Today on Assessment: Content, good self care- showered, brushed her teeth feeling calm and optimistic about her improvements with plan to continue treatment for PTSD related to her dad's Psychiatric Medications: Lorazepam Depakote Olanzapine Side Effects: denies No evidence of TD, EPS AIMs: 0 Review of Psychiatric Symptoms: Mood: "good" Suicide/self-harm: denies Sleep: 5.5 hours on 05/13, 3.5 hours on 05/12- (endorses day time napping) 5 hours 05/11, 6 hours on 05/10, 3.5 on 05/09-- states that unit noise keeps her up at night, leads to trouble staying asleep, Appetite: "good" (- requests protein shakes Energy: "good" Anxiety: "good" while taking the medication - states the Ativan has helped her better manage her anxiety Irritability: denies Homicidal/Anger: none expressed today Hallucinations/Paranoia: denies AVH today, no delusions expressed Trauma symptoms: states she has always had a live time trusting people. Still hasn't processed her father's . Symptoms related to substance withdrawal: denies Mental Status Evaluation General Appearance: Hospital scrubs, well groomed Eye contact: intermittent Demeanor: suspicious, anxious Orientation: to person, place, time, situation Speech: Appropriate rate/rhythm, loud Psychomotor Activity: within normal range Abnormal Body Movements: none observed Mood: anxious, Affect: Full range Suicidality: denies suicidal ideation Homicidally: denies Thought content: paranoid, delusional Thought process: goal directed Thought perceptions: no perceptual disorder noted Memory: appears intact Attention: appear attentive Insight: good Judgment: good Current Medical Problems: PCOS dx 4 years ago - states she just ended her control the week of psychiatric symptom onset. 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 Medical History Cardiac HX: Denies TBI Hx: denies Seizure Hx: denies WHITLEY Hx: denies Diagnoses Psychosis NOS r/o schizoaffective disorder bipolar type r/o Psychotic symptoms due to acute encephalopathy VIV w/panic PTSD- Assessment Victorina presents for follow up to address Psychosis NOS, VIV with panic. 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 Upset, fearful, paranoid, insomnia, disorganized behavior. 05/14: content, anxiety well managed, trouble sleeping r/t roommate, mood no longer labile, no overt psychotic symptoms or delusions. Treatment plan: Continue lorazepam TID for anxiety. Continue Depakote ER for Mood stability/manic symptoms. Continue olanzapine po QHS for mood, psychotic symptoms. Care coordination with mother, provided education and updates. Safety risk: low risk of imminent self-harm, low risk of externalized violent behaviors Plan Continue Depakote ER 1500 mg po QD Continue olanzapine 30 mg po QHS Continue lorazepam 1 mg po TID Continue Q15 min checks Continue Groups/Milieu Engagement Promote social support- Rachel Lopez (lives in [place])- [phone] Care coordination: Sister Twyla- [phone] Mother Nancy- [phone] Tamica JYOTHI- [phone] Dr. Tirso Guevara- [phone] Discharge Plan: to home or family with further intensive outpatient psychiatric treatment Spent approximately 30 minutes reviewing records and test results, assessing and treatment planning, completing care coordination and documenting the encounter. Discussed risks, including possible adverse effects, and benefits of treatment recommendations including no treatment. Voice recognition software may have been used to dictate this note. There may be errors due to use of such software. Reporting of serious errors is appreciated. Antibiotic Ordered?: No Objective Vitals Vital Signs Date Time Temp Pulse Resp B/P (MAP) Pulse Ox O2 Delivery O2 Flow Rate FiO2 05/14/25 20:22 16 05/14/25 08:00 97.7 103 124/74 (91) 97 Room Air Coagulation Studies Laboratory Tests Test 05/07/25 18:34 D-Dimer 1.53 MG/L FEU (0-0.50) H D-Dimer Comment Problem\\Assessment\\Plan Problems/Diagnosis: (1) Unspecified psychosis (2) VIV (generalized anxiety disorder) CODING VISIT-PSYCHIATRY Date of Service: May 14, 2025 Billing Provider: SAKINA CASANOVA DNP Psych Common Visit Codes: [id number] INP/OBS CARE(Low) SAKINA CASANOVA DNP May 14, 2025 20:30
[2025-05-14 20:46] VITALS: RESP 20; O2SAT 98
[2025-05-14 20:56] VITALS: BP 140/98; PULSE 124; RESP 20; TEMP 97; O2SAT 98
[2025-05-15 07:00] VITALS: RESP 14; O2SAT 96
[2025-05-15] MEDS: multivitamins, therapeutics tablet PO SCH (07:26)
[2025-05-15 07:35] VITALS: BP 128/82; PULSE 127; RESP 14; TEMP 98; O2SAT 96
--- NOTE | 2025-05-15 15:16 | ELECTROCARDIOGRAPH REPORT ---
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 Jonathon Paulson Measurements Intervals [place] Rate: 111 P: 56 TX: 146 QRS: 55 QRSD: 86 T: 17 QT: 330 QTc: 449 Interpretive Statements Sinus tachycardia RSR' in V1 or V2, right VCD or RVH Electronically Signed On 05-17-2025 13:18:[address] Jonathon Paulson Please click the below link to view image of tracing.
--- NOTE | 2025-05-15 16:14 | PROGRESS NOTE ---
Progress Note Dictate Providers to CC ~ Progress Note: Admission date: 05/02/25 Status: 5250 HPI: Admitted on 5150 for grave disability, poor sleep, fearful, paranoid- that something bad was going to happen, tangental, memory lapses, ability and auditory, visual, hallucinations, confusion unable to perform ADLs, not eating. Worried someone was going to hurt her. 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 04/27- [facility] [place]ist Dr. 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 Raised concern for potential paranoid schizophrenia vs. schizoaffective disorder bipolar type. Recommended patient would benefit to transfer to an inpatient ps hiatric facility. 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 Psychiatric Medications: Lorazepam Depakote Olanzapine Side Effects: denies No evidence of TD, EPS AIMs: 0 Review of Psychiatric Symptoms: Mood: "good" Suicide/self-harm: denies Sleep: 5 hours on 05/14 - has stabilized been, consistent Appetite: improved since attaining protein shakes Energy: "good"- states she doesnt feel over sedated Anxiety: "good" while taking the medication - states the Ativan has helped her better manage her anxiety Irritability: denies Homicidal/Anger: none expressed today Hallucinations/Paranoia: denies AVH today, no delusions expressed Trauma symptoms: Still hasn't processed her father's . Symptoms related to substance withdrawal: denies Mental Status Evaluation General Appearance: casually dressed, well groomed Eye contact: wnl Demeanor: calm, cooperative Orientation: to person, place, time, situation Speech: Appropriate rate/rhythm, loud Psychomotor Activity: within normal range Abnormal Body Movements: none observed Mood: content Affect: Full range Suicidality: denies suicidal ideation Homicidally: denies Thought content: consistent with social norms Thought process: goal directed Thought perceptions: no perceptual disorder noted Memory: appears intact Attention: appear attentive Insight: good Judgment: good Current Medical Problems: PCOS dx 4 years ago - states she just ended her control the week of psychiatric symptom onset. 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 Medical History Cardiac HX: Denies TBI Hx: denies Seizure Hx: denies WHITLEY Hx: denies Diagnoses Schizoaffective disorder bipolar type VIV w/panic PTSD- Assessment Victorina presents for follow up to address schizoaffective disorder, bipolar type, VIV with panic. 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 Upset, fearful, paranoid, insomnia, disorganized behavior. 05/15: content, positive mood, able to fully articulate current and future plans for psychiatric treatment, sleep has become consistent, stable for discharge Treatment plan: Continue lorazepam TID for anxiety. Continue Depakote ER for Mood stability/manic symptoms. Continue olanzapine po QHS for mood, psychotic symptoms. Care coordination with mother, provided education and updates. Safety risk: low risk of imminent self-harm, low risk of externalized violent behaviors Plan Continue Depakote ER 1500 mg po QD Continue olanzapine 20 mg po QHS Continue lorazepam 1 mg po TID Continue Q15 min checks Continue Groups/Milieu Engagement Promote social support- Rachel Lopez (lives in [place])- [phone] Care coordination: Sister Twyla- [phone] Mother Nancy- [phone] Tamica ROE- [phone] Dr. Tirso Guevara- [phone] Discharge Plan: to home or family with further intensive outpatient psychiatric treatment Spent approximately 30 minutes reviewing records and test results, assessing and treatment planning, completing care coordination and documenting the encounter. Discussed risks, including possible adverse effects, and benefits of treatment recommendations including no treatment. Voice recognition software may have been used to dictate this note. There may be errors due to use of such software. Reporting of serious errors is appreciated. Antibiotic Ordered?: No Objective Vitals Vital Signs Date Time Temp Pulse Resp B/P (MAP) Pulse Ox O2 Delivery O2 Flow Rate FiO2 05/15/25 13:21 16 05/15/25 07:35 98.0 127 128/82 (97) 96 Room Air Coagulation Studies Laboratory Tests Test 05/07/25 18:34 D-Dimer 1.53 MG/L FEU (0-0.50) H D-Dimer Comment Problem\\Assessment\\Plan Problems/Diagnosis: (1) Unspecified psychosis (2) VIV (generalized anxiety disorder) CODING VISIT-PSYCHIATRY Date of Service: May 15, 2025 Billing Provider: SAKINA CASANOVA DNP Psych Common Visit Codes: [id number] INP/OBS CARE(Low) SAKINA CASANOVA DNP May 15, 2025 16:14
--- NOTE | 2025-05-15 19:08 | PROGRESS NOTE- Residence ---
Progress Note - Resident Providers to CC Resident Creating Document: CORETTA RIVERA, RES ~ Huang-Non Protocol Huang Indications Met/Not Met: F/C Indications Not Met Antibiotic Timeout Antibiotic Ordered?: No Subjective Patient was seen and examined at bedside. Patient denies any complaints or concerns at the moment. Patient denies generalized weakness, fatigue, loss of appetite, regular heartbeat, chest pain, difficulty in breathing. Objective Vital Signs Date Time Temp Pulse Resp B/P (MAP) Pulse Ox O2 Delivery O2 Flow Rate FiO2 05/15/25 13:21 16 05/15/25 07:35 98.0 127 128/82 (97) 96 Room Air Moderately obese, young female, Awake , alert and oriented to time,place, person,not in distress HEENT: Atraumatic, normocephalic, PERRLA, EOMI, anicteric sclera ; pink conjunctiva, moist mucos membranes Neck: Trachea midline. Supple, normal range of motion, no JVD, no lymphadenopathy Chest and Respiratory: Equal breath sounds bilaterally, no tachypnea, wheezing, ronchi,rubs .Chest wall is symmetric and without deformity. Cardiac: S1, S2 heard,Regular rate and rhythm, no murmurs ,no gallops, no rubs. Abdomen: Soft, No tenderness, No guarding or rigidity, Hernandez's sign negative. normal bowel sounds x4 quadrant, no hepatosplenomegaly MSK: Range of motion of all extremities are normal. There is no joint pain or joint swelling or joint erythema. There is no muscle pain or tenderness or swelling. Extremities: warm, well-perfused, No cyanosis, clubbing, 2+ pulses felt Neurological: Mental status exam: alert and consciousness, orientation, memory, speech - Cranial nerve test: Cranial nerves II-XII intact. - Motor system: Normal Nutrition, normal tone, Power 5/5, no involuntary movements - Sensory system: Intact - Reflex testing: Biceps, triceps and knee reflexes 2+ - Cerebellar: Normal Skin: Warm and dry Psychiatry: Affect and mood are normal Coagulation Studies Laboratory Tests Test 05/07/25 18:34 D-Dimer 1.53 MG/L FEU (0-0.50) H D-Dimer Comment Assessment Assessment 5150 hold Psychosis Generalized anxiety disorder #Management as per Psychiatry. 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 Resident attestation The above note has been reviewed and supervised by a senior resident PGY2/PGY3 Patient was seen, examined and discussed with the attending physician, Dr. VERNON Rivera MD Internal Medicine Resident, PGY 1 Plan Plan Assessment A 19-year-old female admitted into the mental health unit on 5150 hold. 5150 hold Psychosis Generalized anxiety disorder Continue management as per Psychiatry. Tonsillitis Rapid strep throat ordered Started on azithromycin, patient allergic to penicillin Disposition: Hospitalist service we will continue to follow the patient during the course of her hospital stay. The patient was seen, examined and discussed with the attending physician, Dr. Rainey. Date of Service: May 15, 2025 Billing Provider: KENN RAINEY MD, SUNIL KUMAR, RES May 15, 2025 19:08
[2025-05-15 19:33] VITALS: BP 127/73; PULSE 95; RESP 16; TEMP 97.7; O2SAT 99
[2025-05-16 07:00] VITALS: RESP 12; O2SAT 96
[2025-05-16 07:39] LABS: MEAN PLATELET VOLUME 6.2 FL (7.4-10.4); RED CELL DISTRIBUTION WIDTH 15.0 % (11.5-14.5)
[2025-05-16 07:55] LABS: CREATININE 0.76 MG/DL (0.40-0.90); TOTAL CARBON DIOXIDE 26.4 MMOL/L (24-32); eCRCL 105 ML/MIN; eGFR > 90 ML/MIN
[2025-05-16 08:00] VITALS: BP 152/85; PULSE 125; RESP 12; TEMP 97; O2SAT 99
[2025-05-16 19:21] VITALS: RESP 20; O2SAT 100
[2025-05-16 19:23] VITALS: BP 141/88; PULSE 112; RESP 20; TEMP 97.1; O2SAT 100
[2025-05-16] MEDS: divalproex sodium 500mg tablet.DR PO SCH (20:35)
--- NOTE | 2025-05-16 20:54 | PROGRESS NOTE ---
Progress Note Dictate Providers to CC ~ Progress Note: Admission date: 05/02/25 Status: 5250 HPI: Admitted on 5150 for grave disability, poor sleep, fearful, paranoid- that something bad was going to happen, tangental, memory lapses, ability and auditory, visual, hallucinations, confusion unable to perform ADLs, not eating. Worried someone was going to hurt her. 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 04/27- [facility] Neurologist Dr. 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 Raised concern for potential paranoid schizophrenia vs. schizoaffective disorder bipolar type. Recommended patient would benefit to transfer to an inpatient psychiatric facility. 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 Psychiatric Medications: Lorazepam Depakote Olanzapine Side Effects: denies No evidence of TD, EPS AIMs: 0 Review of Psychiatric Symptoms: Mood: "good" Suicide/self-harm: denies Sleep: 7 hours on 05/15, 5 hours on 05/14 - has stabilized been, consistent Appetite: improved since attaining protein shakes Energy: "good"- states she doesnt feel over sedated Anxiety: "good" while taking the medication - states the Ativan has helped her better manage her anxiety Irritability: denies Homicidal/Anger: none expressed today Hallucinations/Paranoia: denies AVH today, no delusions expressed Trauma symptoms: Still hasn't processed her father's . Symptoms related to substance withdrawal: denies Mental Status Evaluation General Appearance: casually dressed, well groomed Eye contact: wnl Demeanor: calm, cooperative Orientation: to person, place, time, situation Speech: Appropriate rate/rhythm, loud Psychomotor Activity: within normal range Abnormal Body Movements: none observed Mood: content Affect: Full range Suicidality: denies suicidal ideation Homicidally: denies Thought content: consistent with social norms Thought process: goal directed Thought perceptions: no perceptual disorder noted Memory: appears intact Attention: appear attentive Insight: good Judgment: good Current Medical Problems: PCOS dx 4 years ago - states she just ended her control the week of psychiatric symptom onset. 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 Medical History Cardiac HX: Denies TBI Hx: denies Seizure Hx: denies WHITLEY Hx: denies Diagnoses Schizoaffective disorder bipolar type VIV w/panic PTSD- Assessment Victorina presents for follow up to address schizoaffective disorder, bipolar type, VIV with panic. 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 Upset, fearful, paranoid, insomnia, disorganized behavior. 05/16: content, optimistic about discharge, sleep continues to improve, motivated for further treatment Treatment plan: Continue lorazepam TID for anxiety. Continue Depakote ER for Mood stability/manic symptoms. Continue olanzapine po QHS for mood, psychotic symptoms. Care coordination with mother, provided education and updates. Safety risk: low risk of imminent self-harm, low risk of externalized violent behaviors Plan Decrease Depakote ER from 1500 to 1000 mg po QD Continue olanzapine 20 mg po QHS Continue lorazepam 1 mg po TID Continue Q15 min checks Continue Groups/Milieu Engagement Promote social support- Rachel Lopez (lives in [place])- [phone] Care coordination: Sister Twyla- [phone] Mother Nancy- [phone] Tamica ROE- [phone] Dr. Tirso Guevara- [phone] Discharge Plan: WED to home or family with further intensive outpatient psychiatric treatment Spent approximately 30 minutes reviewing records and test results, assessing and treatment planning, completing care coordination and documenting the encounter. Discussed risks, including possible adverse effects, and benefits of treatment recommendations including no treatment. Voice recognition software may have been used to dictate this note. There may be errors due to use of such software. Reporting of serious errors is appreciated. Antibiotic Ordered?: No Objective Vitals Vital Signs Date Time Temp Pulse Resp B/P (MAP) Pulse Ox O2 Delivery O2 Flow Rate FiO2 05/16/25 20:35 16 05/16/25 19:23 97.1 112 141/88 (105) 100 Room Air Lab Results: 05/16/25 0717 05/16/25 0717 Coagulation Studies Laboratory Tests Test 05/07/25 18:34 D-Dimer 1.53 MG/L FEU (0-0.50) H D-Dimer Comment Problem\\Assessment\\Plan Problems/Diagnosis: (1) Unspecified psychosis (2) VIV (generalized anxiety disorder) CODING VISIT-PSYCHIATRY Date of Service: May 16, 2025 Billing Provider: SAKINA CASANOVA DNP Psych Common Visit Codes: [id number] INP/OBS CARE(Mod) SAKINA CASANOVA DNP May 16, 2025 20:53
[2025-05-17 07:05] VITALS: RESP 16; O2SAT 96
[2025-05-17 08:00] VITALS: BP 122/84; PULSE 117; RESP 16; TEMP 97.8; O2SAT 96
[2025-05-17] MEDS ORDERED: FAMO-129 PO (08:08)
[2025-05-17] MEDS ORDERED: AZI25OT PO (08:08)
[2025-05-17] MEDS ORDERED: OLAN10TA73 PO (08:08)
[2025-05-17] MEDS ORDERED: DIVA500T2 PO (08:08)
[2025-05-17] MEDS ORDERED: ATI1T PO (08:08)
[2025-05-17] MEDS ORDERED: LORA-269 PO (08:46)
--- NOTE | 2025-05-17 11:51 | DISCHARGE SUMMARY ---
Discharge Summary Providers to CC ~ Discharge Summary Admission Diagnosis: Schizoaffective disorder, PTSD Discharge Diagnosis\\Comment: Stable Operations\\Procedures: none Consultants: Hospitalist Complications: none Condition on DC: Stable 2 or more antipsychotic used: Yes 2/more antipsychotic addressed: Yes Does Patient smoke: No Smoking education given.: No Discharge Summary: Admission date: 05/02/25 Status: 5250 HPI: Admitted on 5150 for grave disability, poor sleep, fearful, paranoid- that something bad was going to happen, tangental, memory lapses, ability and auditory, visual, hallucinations, confusion unable to perform ADLs, not eating. Worried someone was going to hurt her. 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 04/27- [facility] Neurologist Dr. 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 Raised concern for potential paranoid schizophrenia vs. schizoaffective disorder bipolar type. Recommended patient would benefit to transfer to an inpatient psychiatric facility. Psychiatric History Age of initial treatment: 13 Outpatient: hx of brief counseling in the past Historical Diagnoses (w/year): VIV, psychosis NOS Historical Psych Medications: quetiapine, olanzapine Substance Use History: denies No known hx of IVDU No known hx of meeting criteria for a substance use disorder Social history Born and raised: [place] Current Environment Living Situation: In [place] with roommate, working on degree in [employer] for the past 3 1/2 years, has one semester left . 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 Psychiatric Medications: Lorazepam Depakote Olanzapine Side Effects: denies No evidence of TD, EPS AIMs: 0 Review of Psychiatric Symptoms: Mood: "good" Suicide/self-harm: denies Sleep: 7 hours on 05/15, 5 hours on 05/14 - has stabilized been, consistent Appetite: improved since attaining protein shakes Energy: "good"- states she doesnt feel over sedated Anxiety: "good" while taking the medication - states the Ativan has helped her better manage her anxiety Irritability: denies Homicidal/Anger: none expressed today Hallucinations/Paranoia: denies AVH today, no delusions expressed Trauma symptoms: Still hasn't processed her father's . Symptoms related to substance withdrawal: denies Mental Status Evaluation General Appearance: casually dressed, well groomed Eye contact: wnl Demeanor: calm, cooperative Orientation: to person, place, time, situation Speech: Appropriate rate/rhythm, loud Psychomotor Activity: within normal range Abnormal Body Movements: none observed Mood: content Affect: Full range Suicidality: denies suicidal ideation Homicidally: denies Thought content: consistent with social norms Thought process: goal directed Thought perceptions: no perceptual disorder noted Memory: appears intact Attention: appear attentive Insight: good Judgment: good Current Medical Problems: PCOS dx 4 years ago - states she just ended her control the week of psyc hiatric symptom onset. 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 Medical History Cardiac HX: Denies TBI Hx: denies Seizure Hx: denies WHITLEY Hx: denies Discharge Diagnoses Schizoaffective disorder bipolar type VIV w/panic PTSD- Discharge Assessment Victorina presents stable for discharge after being admitted for schizoaffective disorder, bipolar type, VIV with panic. 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 Has been responsive to treatment, brenda resolved, psychotic symptoms no longer overt. Will continue with further programming outpatient to address underlying PTSD. Content, optimistic about discharge, sleep continues to improve, motivated for further treatment Safety risk: low risk of imminent self-harm, low risk of externalized violent behaviors Discharge Plan: with family Continue Depakote ER 1000 mg po QD Continue olanzapine 20 mg po QHS Continue lorazepam 1 mg po TID to home with family and follow up with further intensive outpatient psychiatric treatment focused on PTSD Spent approximately 30 minutes reviewing records and test results, assessing and treatment planning, completing care coordination and documenting the encounter. Discussed risks, including possible adverse effects, and benefits of treatment recommendations including no treatment. Voice recognition software may have been used to dictate this note. There may be errors due to use of such software. Reporting of serious errors is appreciated. *Problems/Diagnosis: (1) Unspecified psychosis Status: Resolved (2) VIV (generalized anxiety disorder) Status: Chronic Total Time Spent on D/C: Up to 30 Minutes Counseling Services Smoking & Tobacco Cessation: N/A CODING VISIT-PSYCHIATRY Date of Service: May 17, 2025 Billing Provider: SAKINA CASANOVA DNP Psych Common Visit Codes: 19539-PTH/OBS DISCH DAY <30min SAKINA CASANOVA DNP May 17, 2025 11:50
== END 2025-05-17 09:13 | disposition home or self-care (01) | DRG 885 ==
LOC: ADULT MH 16:30
PROVIDERS: ADMIT Psychiatry & Neurology Psychiatry; ATTEND Psychiatry & Neurology Psychiatry
PROC: GZHZZZZ Group Psychotherapy (ICD-10-PCS; 2025-05-03)
PROC: GZ51ZZZ Individual Psychotherapy, Behavioral (ICD-10-PCS; principal; 2025-05-06)
DX: F29 Unspecified psychosis not due to a substance or known physiological condition (principal); F25.0 Schizoaffective disorder, bipolar type; R45.851 Suicidal ideations; F41.1 Generalized anxiety disorder; F24 Shared psychotic disorder; F43.10 Post-traumatic stress disorder, unspecified; G47.00 Insomnia, unspecified; Z88.0 Allergy status to penicillin; Z88.8 Allergy status to other drugs, medicaments and biological substances
CPT/HCPCS: 36415; 71045; 78582; 80053; 80061; 82248; 82550; 83036; 83605; 84443; 85025; 85379; 86140; 86376; 86704; 86705; 87040; 87081; 87340; 93005; 99285; A6250; A9539; A9540; Q0161; Q0163; Q0177